=== PATIENT | female | born 1995 | race Caucasian/White ===

== ENCOUNTER 2019-06-14 17:06 | Emergency (ER) | payer BC, MEDICAID ==
[2019-06-14] MEDS ORDERED: Sodium Chloride 0.9% 10 ML Syringe FLUSH PRN (17:49)
[2019-06-14] MEDS ORDERED: Ketorolac 30 MG/ML SDV IVPUSH ONE (17:50)
--- NOTE | 2019-06-14 17:57 | EDM.PDOC ---
ED HPI GENERAL MEDICAL PROBLEM - General Chief Complaint: REPRODUCTIVE HEALTHCARE ASSISTANT Problem Stated Complaint: poss misscarriage Time Seen by Provider: 06/14/19 17:35 Source of Information: Reports: Patient History Limitations: Reports: No Limitations - History of Present Illness INITIAL COMMENTS - FREE TEXT/NARRATIVE: Patient is a 23-year-old female with a history of preeclampsia presents to the ED with concerns of miscarrying. Patient states her last menstrual cycle was the first part of April of this year. She estimates she is approximately 11 weeks and this was confirmed by 3 home test. She is scheduled to see her REPRODUCTIVE HEALTHCARE ASSISTANT specialist in one week for ultrasound. States has some mild spotting yesterday that was of no concern. Today while at work she noted heavier bleeding and has since passed clots and questionable tissue. She has generalized abdominal discomfort with cramping present. She saturated 3 pads over the last hour and a half. She denies any dizziness, shortness of breath, chest pain, fever, dysuria, or any additional complaints. She believes her blood type is O+. She has a prego history of 4, para 2, miscarriage 1. - Related Data Allergies Allergy/AdvReac Type Severity Reaction Status Date / Time oxycodone [From Percocet] AdvReac Nausea and Verified 11/27/16 15:24 Vomiting Home Meds: Home Meds Acetaminophen/HYDROcodone [[place] 325-5 MG] 1 tab PO Q6H PRN #8 tablet 06/14/19 [ Rx] Ondansetron [Zofran ODT] 4 mg PO Q6H PRN #8 tab.dis 06/14/19 [Rx] Past Medical History Gastrointestinal History: Reports: Other (See Below) REPRODUCTIVE HEALTHCARE ASSISTANT History: Reports: , Spontaneous - Past Surgical History HEENT Surgical History: Reports: Other (See Below) Social & Family History - Tobacco Use Smoking Status *Q: Never Smoker ED ROS GENERAL - Review of Systems Review Of Systems: ROS reveals no pertinent complaints other than HPI. ED EXAM - Physical Exam Exam: See Below Exam Limited By: No Limitations General Appearance: Alert, WD/WN, No Apparent Distress Eye Exam: Bilateral Eye: Normal Inspection, PERRL Ears: Hearing Grossly Normal Nose: Normal Inspection Throat/Mouth: Normal Voice, No Airway Compromise Head: Atraumatic, Normocephalic Neck: Normal Inspection, Supple, Non-Tender, Full Range of Motion Respiratory/Chest: No Respiratory Distress, Lungs Clear, Normal Breath Sounds, No Accessory Muscle Use Cardiovascular: Normal Peripheral Pulses, Regular Rate, Rhythm, No Murmur GI/Abdominal Exam: Normal Bowel Sounds, Soft, No Organomegaly, No Distention, Tender (Generalized abdominal discomfort with palpation.) Back Exam: Normal Inspection, Full Range of Motion Extremities: Normal Inspection, No Pedal Edema Neurological: Alert, Oriented, CN II-XII Intact, Normal Cognition, No Motor/ Sensory Deficits Psychiatric: Normal Affect, Normal Mood Skin Exam: Warm, Dry, Intact, Normal Color Course - Vital Signs Last Recorded V/S: Last Vital Signs Temp 98.5 F 06/14/19 17:17 Pulse 73 06/14/19 17:17 Resp 18 06/14/19 17:17 BP 138/83 06/14/19 17:17 Pulse Ox 100 06/14/19 17:17 - Orders/Labs/Meds Orders: Active Orders 24 hr Category Date Time Status Peripheral IV Care [RC] . DIRECTED Care 06/14/19 17:50 Active PATIENT RETYPE [BBK] Routine Lab 06/14/19 19:59 Ordered Peripheral IV Insertion Adult [OM.PC] Routine Oth 06/14/19 17:49 Ordered Labs: Laboratory Tests 06/14/19 06/14/19 06/14/19 Range/Units 18:02 18:03 18:05 WBC 8.82 (3.98-10.04) K/mm3 RBC 4.49 (3.98-5.22) M/mm3 Hgb 13.6 D (11.2-15.7) gm/dl Hct 40.4 (34.1-44.9) % MCV 90.0 (79.4-94.8) fl MCH 30.3 (25.6-32.2) pg MCHC 33.7 (32.2-35.5) g/dl RDW Std Deviation 38.8 (36.4-46.3) fL Plt Count 313 (182-369) K/mm3 MPV 9.1 L (9.4-12.3) fl Neutrophils % (Manual) 55 (40-60) % Band Neutrophils % 1 (0-10) % Lymphocytes % (Manual) 33 (20-40) % Atypical Lymphs % 0 % Monocytes % (Manual) 8 (2-10) % Eosinophils % (Manual) 3 (0.7-5.8) % Basophils % (Manual) 0 L (0.1-1.2) Platelet Estimate Adequate RBC Morph Comment Normal PT (9.7-12.0) SECONDS INR APTT (22-31) SECONDS Sodium (136-145) mEq/L Potassium (3.5-5.1) mEq/L Chloride (98-107) mEq/L Carbon Dioxide (21-32) mEq/L Anion Gap (5-15) BUN (7-18) mg/dL Creatinine (0.55-1.02) mg/dL Est Cr Clr Drug Dosing Estimated GFR (MDRD) (>60) mL/min BUN/Creatinine Ratio (14-18) Glucose (74-106) mg/dL Calcium (8.5-10.1) mg/dL Total Bilirubin (0.2-1.0) mg/dL AST (15-37) U/L ALT (14-59) U/L Alkaline Phosphatase (46-116) U/L C-Reactive Protein (<1.0) mg/dL Total Protein (6.4-8.2) g/dl Albumin (3.4-5.0) g/dl Globulin gm/dL Albumin/Globulin Ratio (1-2) HCG, Quant mIU/mL Urine Color Red H (Yellow) Urine Appearance Turbid H (Clear) Urine pH 5.5 (5.0-8.0) Ur Specific [place] 1.020 (1.005-1.030) Urine Protein 2+ H (Negative) Urine Glucose (UA) Negative (Negative) Urine Ketones Negative (Negative) Urine Occult Blood 3+ H (Negative) Urine Nitrite Negative (Negative) Urine Bilirubin Negative (Negative) Urine Urobilinogen 0.2 (0.2-1.0) Ur Leukocyte Esterase Negative (Negative) Urine RBC Too numerous to cnt H (0-5) /hpf Urine WBC 0-5 (0-5) /hpf Ur Squamous Epith Cells 0-5 (0-5) /hpf Urine Bacteria Few (FEW) /hpf Urine Mucus Not seen (FEW) /hpf Urine HCG, Qual Positive (NEGATIVE) Blood Type 06/14/19 06/14/19 06/14/19 Range/Units 18:05 18:05 18:05 WBC (3.98-10.04) K/mm3 RBC (3.98-5.22) M/mm3 Hgb (11.2-15.7) gm/dl Hct (34.1-44.9) % MCV (79.4-94.8) fl MCH (25.6-32.2) pg MCHC (32.2-35.5) g/dl RDW Std Deviation (36.4-46.3) fL Plt Count (182-369) K/mm3 MPV (9.4-12.3) fl Neutrophils % (Manual) (40-60) % Band Neutrophils % (0-10) % Lymphocytes % (Manual) (20-40) % Atypical Lymphs % % Monocytes % (Manual) (2-10) % Eosinophils % (Manual) (0.7-5.8) % Basophils % (Manual) (0.1-1.2) Platelet Estimate RBC Morph Comment PT 9.8 (9.7-12.0) SECONDS INR < 0.93 APTT 28 (22-31) SECONDS Sodium 140 (136-145) mEq/L Potassium 3.7 (3.5-5.1) mEq/L Chloride 104 (98-107) mEq/L Carbon Dioxide 27 (21-32) mEq/L Anion Gap 12.7 (5-15) BUN 9 (7-18) mg/dL Creatinine 0.7 (0.55-1.02) mg/dL Est Cr Clr Drug Dosing TNP Estimated GFR (MDRD) > 60 (>60) mL/min BUN/Creatinine Ratio 12.9 L (14-18) Glucose 102 (74-106) mg/dL Calcium 9.4 (8.5-10.1) mg/dL Total Bilirubin 0.2 (0.2-1.0) mg/dL AST 23 (15-37) U/L ALT 48 (14-59) U/L Alkaline Phosphatase 88 (46-116) U/L C-Reactive Protein 1.0 (<1.0) mg/dL Total Protein 7.9 (6.4-8.2) g/dl Albumin 4.2 (3.4-5.0) g/dl Globulin 3.7 gm/dL Albumin/Globulin Ratio 1.1 (1-2) HCG, Quant mIU/mL Urine Color (Yellow) Urine Appearance (Clear) Urine pH (5.0-8.0) Ur Specific [place] (1.005-1.030) Urine Protein (Negative) Urine Glucose (UA) (Negative) Urine Ketones (Negative) Urine Occult Blood (Negative) Urine Nitrite (Negative) Urine Bilirubin (Negative) Urine Urobilinogen (0.2-1.0) Ur Leukocyte Esterase (Negative) Urine RBC (0-5) /hpf Urine WBC (0-5) /hpf Ur Squamous Epith Cells (0-5) /hpf Urine Bacteria (FEW) /hpf Urine Mucus (FEW) /hpf Urine HCG, Qual (NEGATIVE) Blood Type O POSITIVE 06/14/19 Range/Units 19:35 WBC (3.98-10.04) K/mm3 RBC (3.98-5.22) M/mm3 Hgb (11.2-15.7) gm/dl Hct (34.1-44.9) % MCV (79.4-94.8) fl MCH (25.6-32.2) pg MCHC (32.2-35.5) g/dl RDW Std Deviation (36.4-46.3) fL Plt Count (182-369) K/mm3 MPV (9.4-12.3) fl Neutrophils % (Manual) (40-60) % Band Neutrophils % (0-10) % Lymphocytes % (Manual) (20-40) % Atypical Lymphs % % Monocytes % (Manual) (2-10) % Eosinophils % (Manual) (0.7-5.8) % Basophils % (Manual) (0.1-1.2) Platelet Estimate RBC Morph Comment PT (9.7-12.0) SECONDS INR APTT (22-31) SECONDS Sodium (136-145) mEq/L Potassium (3.5-5.1) mEq/L Chloride (98-107) mEq/L Carbon Dioxide (21-32) mEq/L Anion Gap (5-15) BUN (7-18) mg/dL Creatinine (0.55-1.02) mg/dL Est Cr Clr Drug Dosing Estimated GFR (MDRD) (>60) mL/min BUN/Creatinine Ratio (14-18) Glucose (74-106) mg/dL Calcium (8.5-10.1) mg/dL Total Bilirubin (0.2-1.0) mg/dL AST (15-37) U/L ALT (14-59) U/L Alkaline Phosphatase (46-116) U/L C-Reactive Protein (<1.0) mg/dL Total Protein (6.4-8.2) g/dl Albumin (3.4-5.0) g/dl Globulin gm/dL Albumin/Globulin Ratio (1-2) HCG, Quant 93334.0 mIU/mL Urine Color (Yellow) Urine Appearance (Clear) Urine pH (5.0-8.0) Ur Specific [place] (1.005-1.030) Urine Protein (Negative) Urine Glucose (UA) (Negative) Urine Ketones (Negative) Urine Occult Blood (Negative) Urine Nitrite (Negative) Urine Bilirubin (Negative) Urine Urobilinogen (0.2-1.0) Ur Leukocyte Esterase (Negative) Urine RBC (0-5) /hpf Urine WBC (0-5) /hpf Ur Squamous Epith Cells (0-5) /hpf Urine Bacteria (FEW) /hpf Urine Mucus (FEW) /hpf Urine HCG, Qual (NEGATIVE) Blood Type Meds: Medications Discontinued Medications Generic Name Dose Route Start Last Admin Trade Name Freq PRN Reason Stop Dose Admin Hydrocodone Bitart/Acetaminophen 1 tab 06/14/19 20:34 06/14/19 20:50 [place] 325-5 Mg PO 06/14/19 20:35 1 tab ONETIME ONE Administration Hydromorphone HCl 0.5 mg 06/14/19 18:58 06/14/19 19:08 Dilaudid IVPUSH 06/14/19 18:59 0.5 mg ONETIME ONE Administration Hydromorphone HCl 0.5 mg 06/14/19 20:23 06/14/19 20:33 Dilaudid IVPUSH 06/14/19 20:24 Not Given ONETIME ONE Sodium Chloride 1,000 mls @ 150 mls/hr 06/14/19 18:00 06/14/19 18:07 Normal Saline IV 150 mls/hr ASDIRECTED KENDELL Administration Ketorolac Tromethamine 30 mg 06/14/19 17:50 06/14/19 18:07 Toradol IVPUSH 06/14/19 17:51 30 mg ONETIME ONE Administration Sodium Chloride 10 ml 06/14/19 17:49 06/14/19 18:07 Saline Flush FLUSH 10 ml ASDIRECTED PRN Administration Keep Vein Open - Re-Assessments/Exams Free Text/Narrative Re-Assessment/Exam: On exam patient has generalized abdominal discomfort with crampiness and has saturated approximately 3 pads over the last hour and a half. She's passed some clots and tissue per patient. She denies any lightheadedness, nausea vomiting, dysuria, fever, or any additional complaints. She has a history of preeclampsia and notes a slight headache as of recent. She denies any edema to her lower extremities. There is no vision changes. She is approximately 11 weeks . This was confirmed by home test 3. She is scheduled to have a ultrasound by REPRODUCTIVE HEALTHCARE ASSISTANT in the next week. She does have a history of miscarriage in the past. IV established with normal saline. Ordered Toradol 30 mg IVP. Initial labs and studies include: CBC, chem 14, CRP, coag studies, ABO/Rh type, UA, hCG quantitative, and OB transvaginal. Transvaginal ultrasound impression: Distended endometrial cavity as described above. Molar is a strong possibility. Dominant follicle versus corpus luteum cyst as an incidental note within the right ovary. No additional abnormalities seen. Labs reviewed: CBC was essentially normal. Sodium, potassium, CO2, AG, and creatinine normal. CRP normal. HCG quantitative 13,258. UA positive for blood. 2004 Discussed the patient with Dr. Montoya [employer] manager RE[employer]IVE HEALTHCARE ASSISTANT. Suggested speaking with patients REPR[employer]IVE HEALTHCARE ASSISTANT specialists Dr. Thurston. [address] Thurston. She will see patient in the clinic tomorrow as scheduled at 945. Nothing needs to take place this morning as long as patient is stable and not bleeding excessively. Suspects findings on ultrasound maybe fluid/blood with debris due to miscarriage taking place since HCG quantitative is not that high. 2014 BP 120/73, HR 59. Patients bleeding has stopped. Still having some mild abdominal pain. Ordered dilaudid 0.5mg IVP. 2021 Nursing staff has pulled the IV. Ordered norco 5-325mg PO x 1 per patients requests. Return precautions were discussed with the patient. She had no further questions or concerns. Discharge instructions as documented. Departure - Departure Time of Disposition: 20:34 Disposition: Home, Self-Care 01 Condition: Good Clinical Impression: Incomplete - Discharge Information Prescriptions: Acetaminophen/HYDROcodone [[place] 325-5 MG] 1 tab PO Q6H PRN #8 tablet PRN Reason: Abdominal Pain Ondansetron [Zofran ODT] 4 mg PO Q6H PRN #8 tab.dis PRN Reason: Nausea/Vomiting Instructions: Incomplete Miscarriage, Pain Medicine Instructions, [id number] Referrals: Dominique Thurston MD [Primary Care Provider] - Forms: ED Department Discharge Additional Instructions: Keep appointment with Dr. Thurston has scheduled for tomorrow morning. Monitor for worsening bleeding or pain is so please return back to ED as instructed for further evaluation and treatment. For pain take ibuprofen 600 mg every 6 hours. For severe pain take [place] one tab every [address] not drive this evening nor while taking the [place]. May take Zofran 4 mg every 6 hours as needed for nausea vomiting as well. - My Orders Last 24 Hours: My Active Orders 06/14/19 17:49 Peripheral IV Insertion Adult [OM.PC] Routine 06/14/19 17:50 Peripheral IV Care [RC] . DIRECTED 06/14/19 19:59 PATIENT RETYPE [BBK] Routine - Assessment/Plan Last 24 Hours: My Active Orders 06/14/19 17:49 Peripheral IV Insertion Adult [OM.PC] Routine 06/14/19 17:50 Peripheral IV Care [RC] . DIRECTED 06/14/19 19:59 PATIENT RETYPE [BBK] Routine
[2019-06-14] MEDS ORDERED: Sodium Chloride 0.9% 1,000 ML IV SCH (18:00)
[2019-06-14] MEDS ORDERED: HYDROmorphone 0.5 MG/0.5 ML Syringe IVPUSH ONE ×2 (18:58→20:23)
--- NOTE | 2019-06-14 19:10 | US ---
First trimester obstetrical ultrasound: Multiple real-time images were obtained transvaginally. Findings: Endometrial cavity shows evidence of distention with heterogeneous material containing small cystic areas. At this point cannot exclude a molar . Endometrial cavity is distended by 1.8 cm. No myometrial abnormality is seen at this time. Dominant follicle versus corpus luteum cyst within the right ovary. Ovaries are otherwise unremarkable. No free fluid is seen. Impression: 1. Distended endometrial cavity as described above. Molar is a strong possibility. 2. Dominant follicle versus corpus luteum cyst as an incidental note within the right ovary. 3. No additional abnormality is seen. Diagnostic code #3
[2019-06-14] MEDS ORDERED: Acetaminophen/HYDROcodone 325-5 MG Tab PO ONE (20:34)
== END 2019-06-14 20:52 | disposition home or self-care (01) ==
LOC: JD.ED 17:06
DX: O03.4 Incomplete spontaneous abortion without complication (principal); Z88.5 Allergy status to narcotic agent
CPT/HCPCS: 36415; 76817; 80053; 81001; 81025; 84702; 85007; 85027; 85610; 85730; 86140; 86900; 86901; 96361; 96374; 96375; 99284; A9270; J1170; J1885; J7040; 99283

== ENCOUNTER 2021-03-25 11:24 | Emergency (ER) | payer OTHER ==
[2021-03-25] MEDS ORDERED: Sodium Chloride 0.9% 10 ML Syringe FLUSH PRN (11:58)
[2021-03-25] MEDS ORDERED: Hyoscyamine 0.125 MG Tab.SL SL ONE (11:58)
[2021-03-25] MEDS ORDERED: Ondansetron 4 MG/2 ML SDV IVPUSH ONE (11:58)
[2021-03-25] MEDS ORDERED: Sodium Chloride 0.9% 1,000 ML IV ONE (11:58)
--- NOTE | 2021-03-25 11:59 | EDM.PDOC ---
ED HPI GENERAL MEDICAL PROBLEM - General Chief Complaint: Gastrointestinal Problem Stated Complaint: VOMITING/DIARRHEA/CHILLS Time Seen by Provider: 03/25/21 11:37 Source of Information: Reports: Patient History Limitations: Reports: No Limitations - History of Present Illness INITIAL COMMENTS - FREE TEXT/NARRATIVE: 25-year-old female presents to the emergency department with complaints of nausea, vomiting, diarrhea and abdominal cramping. Patient states she is otherwise healthy and does not have any past medical history. She states that she was out in the heat all day yesterday. It was 100 degrees outside. She feels like she drink enough water throughout the day. 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 She states that later that afternoon she did eat some brisket and potato salad and felt fine when she went to bed last evening. She states she slept fine throughout the night. States she woke up this morning and had abdominal cramping and diarrhea. She states she has been on the toilet all morning with watery diarrhea. She states she has vomited 4 times. She has not been able to keep any food or fluids down. States she has had a headache. She denies any fever however she has had intermittent chills. She also states she has had a headache. Patient denies any urinary symptoms. abdomen Pain Score (Numeric/FACES): 4 - Related Data Allergies Allergy/AdvReac Type Severity Reaction Status Date / Time oxycodone [From Percocet] AdvReac Nausea and Verified 11/27/16 15:24 Vomiting Home Meds: Home Meds . [No Known Home Meds] 03/25/21 [History] Past Medical History Gastrointestinal History: Reports: Other (See Below) DIRECTOR OF PATIENT CARE History: Reports: , Spontaneous - Infectious Disease History Infectious Disease History: Reports: Novel Coronavirus Other Infectious Disease History: may 2020 - Past Surgical History HEENT Surgical History: Reports: Other (See Below) Social & Family History - Tobacco Use Tobacco Use Status *Q: Never Tobacco User - Recreational Drug Use Recreational Drug Use: No ED ROS GENERAL - Review of Systems Review Of Systems: Comprehensive ROS is negative, except as noted in HPI. ED EXAM, GI/ABD - Physical Exam Exam: See Below Exam Limited By: No Limitations General Appearance: Alert, WD/WN, Mild Distress Ears: Normal External Exam, Hearing Grossly Normal Nose: Normal Inspection Throat/Mouth: Normal Inspection, Normal Lips, Normal Voice, No Airway Compromise Head: Atraumatic Neck: Normal Inspection, Supple Respiratory/Chest: No Respiratory Distress, Lungs Clear, Normal Breath Sounds, No Accessory Muscle Use, Chest Non-Tender Cardiovascular: Normal Peripheral Pulses, Regular Rate, Rhythm, No Edema, No Murmur GI/Abdominal Exam: Normal Bowel Sounds, Soft, No Distention, Tender (In all 4 quadrants with palpation) (Female) Exam: Deferred Rectal (Female) Exam: Deferred Back Exam: Normal Inspection Extremities: Normal Inspection, Normal Range of Motion Neurological: Alert, Oriented, Normal Cognition Psychiatric: Normal Affect, Normal Mood Skin Exam: Warm, Dry, Intact, Normal Color, No Rash Lymphatic: No Adenopathy Course - Vital Signs Text/Narrative:: Patient presents with nausea, vomiting, watery diarrhea, generalized abdominal cramping and a headache. States this started first thing when she woke up this morning. She states she has been on the toilet most of the morning with watery diarrhea. She has vomited approximately 4 times. States that she has had intermittent generalized abdominal cramping that is quite severe. States she felt fine yesterday had before she went to bed. She did eat outside yesterday and had some brisket and potato salad. At the time of my assessment the patient is not actively vomiting. Exam is essentially unremarkable however she does have tenderness in the abdomen in all 4 quadrants with palpation. Bowel sounds are positive in all 4 quadrants. I have ordered a CBC, CMP, C-reactive protein, magnesium, lipase and a urinalysis with micro and culture if indicated. She will also receive 1 L of normal saline bolus as she is likely dehydrated, Zofran 4 mg IV for the nausea, and Levsin for the abdominal cramping. Last Recorded V/S: Last Vital Signs Temp 97.1 F 03/25/21 11:37 Pulse 88 03/25/21 11:37 Resp 18 03/25/21 11:37 BP 123/64 03/25/21 11:37 Pulse Ox 100 03/25/21 11:37 - Orders/Labs/Meds Orders: Active Orders 24 hr Category Date Time Status CULTURE URINE [MREF] Stat Lab 03/25/21 13:45 Received Sodium Chloride 0.9% [Saline Flush] Med 03/25/21 11:58 Active 10 ml FLUSH ASDIRECTED PRN Saline Lock Insert [OM.PC] Stat Oth 03/25/21 11:58 Ordered Medication Orders Sodium Chloride (Sodium Chloride 0.9% 10 Ml Syringe) 10 ml FLUSH ASDIRECTED PRN PRN Reason: Keep Vein Open Last Admin: 03/25/21 12:16 Dose: 10 ml Documented by: VIVIAN Labs: Laboratory Tests 03/25/21 03/25/21 03/25/21 Range/Units 11:40 11:40 11:40 WBC 14.16 H (3.98-10.04) K/mm3 RBC 4.44 (3.98-5.22) M/mm3 Hgb 13.8 (11.2-15.7) gm/dl Hct 41.8 (34.1-44.9) % MCV 94.1 D (79.4-94.8) fl MCH 31.1 (25.6-32.2) pg MCHC 33.0 (32.2-35.5) g/dl RDW Std Deviation 42.9 (36.4-46.3) fL Plt Count 361 (182-369) K/mm3 MPV 8.8 L (9.4-12.3) fl Neut % (Auto) 81.7 H (34.0-71.1) % Lymph % (Auto) 13.1 L (19.3-51.7) % [place] % (Auto) 4.0 L (4.7-12.5) % Eos % (Auto) 0.6 L (0.7-5.8) Baso % (Auto) 0.2 (0.1-1.2) % Neut # (Auto) 11.56 H (1.56-6.13) K/mm3 Lymph # (Auto) 1.86 (1.18-3.74) K/mm3 [place] # (Auto) 0.56 H (0.24-0.36) K/mm3 Eos # (Auto) 0.09 (0.04-0.36) K/mm3 Baso # (Auto) 0.03 (0.01-0.08) K/mm3 Manual Slide Review Not Reportable Sodium 142 (136-145) mEq/L Potassium 4.4 (3.5-5.1) mEq/L Chloride 104 (98-107) mEq/L Carbon Dioxide 25 (21-32) mEq/L Anion Gap 17.4 H (5-15) BUN 15 (7-18) mg/dL Creatinine 1.0 (0.55-1.02) mg/dL Est Cr Clr Drug Dosing 73.62 mL/min Estimated GFR (MDRD) > 60 (>60) mL/min BUN/Creatinine Ratio 15.0 (14-18) Glucose 160 H (70-99) mg/dL Calcium 9.0 (8.5-10.1) mg/dL Magnesium 1.6 L (1.8-2.4) mg/dL Total Bilirubin 0.4 (0.2-1.0) mg/dL AST 15 (15-37) U/L ALT 30 (14-59) U/L Alkaline Phosphatase 64 (46-116) U/L C-Reactive Protein 0.5 (<1.0) mg/dL Total Protein 8.2 (6.4-8.2) g/dl Albumin 4.5 (3.4-5.0) g/dl Globulin 3.7 gm/dL Albumin/Globulin Ratio 1.2 (1-2) Lipase 116 (73-393) U/L Urine Color (Yellow) Urine Appearance (Clear) Urine pH (5.0-8.0) Ur Specific [place] (1.005-1.030) Urine Protein (Negative) Urine Glucose (UA) (Negative) Urine Ketones (Negative) Urine Occult Blood (Negative) Urine Nitrite (Negative) Urine Bilirubin (Negative) Urine Urobilinogen (0.2-1.0) Ur Leukocyte Esterase (Negative) U Hyaline Cast (Auto) (0-5) /lpf Urine RBC (0-5) /hpf Urine WBC (0-5) /hpf Ur Squamous Epith Cells (0-5) /hpf Urine Bacteria (FEW) /hpf Urine Mucus (FEW) /hpf 03/25/21 Range/Units 13:45 WBC (3.98-10.04) K/mm3 RBC (3.98-5.22) M/mm3 Hgb (11.2-15.7) gm/dl Hct (34.1-44.9) % MCV (79.4-94.8) fl MCH (25.6-32.2) pg MCHC (32.2-35.5) g/dl RDW Std Deviation (36.4-46.3) fL Plt Count (182-369) K/mm3 MPV (9.4-12.3) fl Neut % (Auto) (34.0-71.1) % Lymph % (Auto) (19.3-51.7) % [place] % (Auto) (4.7-12.5) % Eos % (Auto) (0.7-5.8) Baso % (Auto) (0.1-1.2) % Neut # (Auto) (1.56-6.13) K/mm3 Lymph # (Auto) (1.18-3.74) K/mm3 [place] # (Auto) (0.24-0.36) K/mm3 Eos # (Auto) (0.04-0.36) K/mm3 Baso # (Auto) (0.01-0.08) K/mm3 Manual Slide Review Sodium (136-145) mEq/L Potassium (3.5-5.1) mEq/L Chloride (98-107) mEq/L Carbon Dioxide (21-32) mEq/L Anion Gap (5-15) BUN (7-18) mg/dL Creatinine (0.55-1.02) mg/dL Est Cr Clr Drug Dosing mL/min Estimated GFR (MDRD) (>60) mL/min BUN/Creatinine Ratio (14-18) Glucose (70-99) mg/dL Calcium (8.5-10.1) mg/dL Magnesium (1.8-2.4) mg/dL Total Bilirubin (0.2-1.0) mg/dL AST (15-37) U/L ALT (14-59) U/L Alkaline Phosphatase (46-116) U/L C-Reactive Protein (<1.0) mg/dL Total Protein (6.4-8.2) g/dl Albumin (3.4-5.0) g/dl Globulin gm/dL Albumin/Globulin Ratio (1-2) Lipase (73-393) U/L Urine Color Yellow (Yellow) Urine Appearance Slt cloudy H (Clear) Urine pH 7.0 (5.0-8.0) Ur Specific [place] 1.025 (1.005-1.030) Urine Protein 2+ H (Negative) Urine Glucose (UA) Negative (Negative) Urine Ketones Negative (Negative) Urine Occult Blood Negative (Negative) Urine Nitrite Negative (Negative) Urine Bilirubin Negative (Negative) Urine Urobilinogen 0.2 (0.2-1.0) Ur Leukocyte Esterase Trace H (Negative) U Hyaline Cast (Auto) 5-10 H (0-5) /lpf Urine RBC Not seen (0-5) /hpf Urine WBC 5-10 H (0-5) /hpf Ur Squamous Epith Cells 0-5 (0-5) /hpf Urine Bacteria Moderate H (FEW) /hpf Urine Mucus Many H (FEW) /hpf Meds: Medications Generic Name Dose Route Start Last Admin Trade Name Freq PRN Reason Stop Dose Admin Sodium Chloride 10 ml 03/25/21 11:58 03/25/21 12:16 Sodium Chloride 0.9% 10 Ml Syringe FLUSH 10 ml ASDIRECTED PRN Administration Keep Vein Open Discontinued Medications Generic Name Dose Route Start Last Admin Trade Name Freq PRN Reason Stop Dose Admin Hyoscyamine 0.125 mg 03/25/21 11:58 03/25/21 12:16 Hyoscyamine 0.125 Mg Tab.Sl SL 03/25/21 11:59 0.125 mg ONETIME ONE Administration Sodium Chloride 1,000 mls @ 999 mls/hr 03/25/21 11:58 03/25/21 12:15 Normal Saline IV 03/25/21 12:58 999 mls/hr ONETIME ONE Administration Ketorolac Tromethamine 30 mg 03/25/21 13:48 03/25/21 13:58 Ketorolac 30 Mg/Ml Sdv IVPUSH 03/25/21 13:49 30 mg ONETIME ONE Administration Ondansetron HCl 4 mg 03/25/21 11:58 03/25/21 12:15 Ondansetron 4 Mg/2 Ml Sdv IVPUSH 03/25/21 11:59 4 mg ONETIME ONE Administration - Re-Assessments/Exams Free Text/Narrative Re-Assessment/Exam: 03/25/21 14:15 Hematology reveals a WBC of 14.6, hemoglobin 13.8, hematocrit 41.8, neutrophil percentage 81.7 Chemistry reveals a sodium of 142, potassium 4.4, anion gap 17.4, BUN 15, creatinine 1.0 glucose 160, magnesium 1.6, total bilirubin 0.4, AST 15, ALT 30, alk phos 64, C-reactive protein 0.5 White count is elevated however the patient is slightly dehydrated and her C- reactive protein is normal. I suspect patient has viral gastroenteritis. Patient states she is feeling better. Her nausea has resolved however she still does have some abdominal cramping but significantly less severe. She has not had any diarrhea stools since being in the emergency department. She does complain of a headache. I have ordered for her to receive 30 mg of Toradol IV. Nursing staff has just collected her urine so we will likely discharge her to home once I have those results. 03/25/21 15:01 Urinalysis reveals 2+ protein, trace leukocyte esterase, hyaline casts, 5-10 WBC, moderate bacteria, urine mucus many. I discussed these results with the patient and she states she is completely asymptomatic so I will hold off on starting her on antibiotic at this time urine culture is pending. Once we receive this report we will decide whether or not to start her on an antibiotic. I have educated her however that should she develop urinary type of symptoms that she should follow-up with her primary care provider or she can return to the emergency department. I have also discussed that I will give her prescription for Zofran 4 mg ODT. She can take 1 tab every 6 hours for nausea or vomiting. Departure - Departure Time of Disposition: 15:02 Disposition: Home, Self-Care 01 Condition: Good Clinical Impression: Gastroenteritis - Discharge Information Instructions: Viral Gastroenteritis, Adult, [id number], Nausea and Vomiting, Adult, [id number] Referrals: PCP,None [Primary Care Provider] - Forms: ED Department Discharge Additional Instructions: You were seen in the emergency department today with complaints of headache, nausea, vomiting, diarrhea and abdominal cramping. Labs and urinalysis were completed. Your magnesium level was slightly low however blood work was essentially otherwise unremarkable. You likely have viral gastroenteritis otherwise known as a stomach flu. This likely will resolve in the next 24 to 48 hours. Recommend that you go home and rest. Stay out of the heat. Drink plenty of fluids. Recommend that you drink Gatorade to replenish your electrolytes as I stated your magnesium level was slightly on the low side. Your urine test does appear that you may have a slight urinary tract infection however as I discussed if you are not symptomatic I do not want to start you on antibiotics. I will wait for the culture results to return and decide from there whether or not you do need to be started on antibiotic. We will call you if you do otherwise if you do not hear from us you do not need to worry. I have given you a prescription for a nausea medication called Carlotta. You can take this medication place it under your tongue and allow it to dissolve. Please allow 30 to 45 minutes for it to fully take effect prior to eating or drinking. You can take this medication every 6 hours as needed for nausea and vomiting. Should your condition worsen or change, do not hesitate returning to the emergency department. Sepsis Event Note (ED) - Evaluation Sepsis Screening Result: No Definite Risk - Focused Exam Vital Signs: Vital Signs Temp Pulse Resp BP Pulse Ox 03/25/21 11:37 97.1 F 88 18 123/64 100 - My Orders Last 24 Hours: My Active Orders 03/25/21 11:58 Sodium Chloride 0.9% [Saline Flush] 10 ml FLUSH ASDIRECTED PRN Saline Lock Insert [OM.PC] Stat 03/25/21 13:45 CULTURE URINE [MREF] Stat - Assessment/Plan Last 24 Hours: My Active Orders 03/25/21 11:58 Sodium Chloride 0.9% [Saline Flush] 10 ml FLUSH ASDIRECTED PRN Saline Lock Insert [OM.PC] Stat 03/25/21 13:45 CULTURE URINE [MREF] Stat
[2021-03-25] MEDS ORDERED: Ketorolac 30 MG/ML SDV IVPUSH ONE (13:48)
== END 2021-03-25 15:13 | disposition home or self-care (01) ==
LOC: JD.ED 11:24
DX: K52.9 Noninfective gastroenteritis and colitis, unspecified (principal); E86.0 Dehydration; Z88.5 Allergy status to narcotic agent; Z86.16 Personal history of COVID-19
CPT/HCPCS: 36415; 80053; 81001; 83690; 83735; 85025; 86140; 87086; 96374; 96375; 99284; A9270; J1885; J2405; J7030; 99283

== ENCOUNTER 2021-04-15 11:29 | Emergency (ER) | payer OTHER ==
[2021-04-15] MEDS ORDERED: methylPREDNISolone Sodium Succinate 125 MG/2 ML SDV IM ONE (12:16)
--- NOTE | 2021-04-15 12:39 | EDM.PDOC ---
ED HPI GENERAL MEDICAL PROBLEM - General Chief Complaint: Bite:Animal, Insect Stated Complaint: ALLERGIC RX TO BEE STING Time Seen by Provider: 04/15/21 12:15 Source of Information: Reports: Patient, RN Notes Reviewed History Limitations: Reports: No Limitations - History of Present Illness INITIAL COMMENTS - FREE TEXT/NARRATIVE: Patient is a 25-year-old female presents to the ER for 2 different bee stings. States she was stung on her right hand, on the posterior aspect, and again on the right calf. She does have some erythema and localized swelling to the areas, states she has been taking children's Benadryl every 4 hours and this does not seem to be helping, she is complaining of the areas being itchy, and increased swelling. She has some slight pain when she flexes her leg, or when she walks otherwise she is able to move her leg in all range of motion without difficulty. Patient denies any other sick-like symptoms, fever/chills, cough/shortness of breath, nausea/vomiting/diarrhea. Right Hand Pain Score (Numeric/FACES): 3 - Related Data Allergies Allergy/AdvReac Type Severity Reaction Status Date / Time bee venom protein (honey bee) Allergy Severe Swelling Verified 04/15/21 11:39 oxycodone [From Percocet] Allergy Severe Rash Verified 04/15/21 11:39 Home Meds: Home Meds . [No Known Home Meds] 03/25/21 [History] Past Medical History Gastrointestinal History: Reports: Other (See Below) [employer] History: Reports: , Spontaneous - Infectious Disease History Infectious Disease History: Reports: Novel Coronavirus Other Infectious Disease History: may 2020 - Past Surgical History HEENT Surgical History: Reports: Oral Surgery Social & Family History - Tobacco Use Tobacco Use Status *Q: Never Tobacco User - Caffeine Use Caffeine Use: Reports: None - Recreational Drug Use Recreational Drug Use: No ED ROS GENERAL - Review of Systems Review Of Systems: Comprehensive ROS is negative, except as noted in HPI. ED EXAM, ANIMAL BITE - Physical Exam Exam: See Below Exam Limited By: No Limitations General Appearance: Alert, WD/WN, No Apparent Distress Respiratory/Chest: No Respiratory Distress, Lungs Clear, Normal Breath Sounds, No Accessory Muscle Use, Chest Non-Tender Cardiovascular: Normal Peripheral Pulses, Regular Rate, Rhythm, No Edema Peripheral Pulses: 2+: Radial (L), Radial (R), Dorsalis Pedis (L), Dorsalis Pedis (R) Extremities: Normal Range of Motion, Normal Capillary Refill, Other (Swelling to posterior right hand with slight erythema, Erythema to R lateral posterior calf that is roughly 5cm in diameter) Neurological: Alert, Oriented, Normal Cognition, No Motor/Sensory Deficits Psychiatric: Normal Affect, Normal Mood Skin Exam: Warm/Dry Course - Vital Signs Last Recorded V/S: Last Vital Signs Temp 96.7 F L 04/15/21 11:36 Pulse 81 04/15/21 11:36 Resp 16 04/15/21 11:36 BP 127/67 04/15/21 11:36 Pulse Ox 98 04/15/21 11:36 - Orders/Labs/Meds Meds: Medications Discontinued Medications Generic Name Dose Route Start Last Admin Trade Name Freamelie PRN Reason Stop Dose Admin Methylprednisolone Sodium Succinate 125 mg 04/15/21 12:16 Methylprednisolone Sodium Succinate 125 Mg/2 Ml Sdv IM 04/15/21 12:17 ONETIME ONE - Re-Assessments/Exams Free Text/Narrative Re-Assessment/Exam: 04/15/21 12:35 Patient has 2 different bug bites, one on her right posterior hand, and right posterior lateral calf, we will give her a one-time injection of IM Solu-Medrol for management, and we will give her some general instructions for home and have her follow-up in a few days if not much better. Departure - Departure Time of Disposition: 12:35 Disposition: Home, Self-Care 01 Condition: Good Clinical Impression: Insect bite Qualifiers: Encounter type: initial encounter Site of insect bite: unspecified site Qualified Code(s): W57.XXXA - Bitten or stung by nonvenomous insect and other nonvenomous arthropods, initial encounter - Discharge Information *PRESCRIPTION DRUG MONITORING PROGRAM REVIEWED*: No *COPY OF PRESCRIPTION DRUG MONITORING REPORT IN PATIENT AZEB: No Instructions: Insect Bite, Adult, [id number] Referrals: PCP,None [Primary Care Provider] - Forms: ED Department Discharge Additional Instructions: You were evaluated in the ER today for your bee sting on your right hand and right leg. At this time; it looks like local inflammation, but this will take a day or 2 to feel much better. Sometimes this can take up to 48 hours to start subsiding. Please keep an eye on the areas, if you should notice any red streaking, up the arm or leg, or redness that seems to be spreading far from the borders in which they are confined to today, this would be cause for concern to return to medical management for reevaluation. You may continue to use Benadryl, 25 mg every 4 hours as needed for ongoing swelling relief, however throughout the day I recommend that you use a medication like Zyrtec or Martha, as this has antihistamine properties, and you only need to take 1 tablet daily for ongoing anti-histamine management. The Benadryl can make you sleepy, and we caution use of this throughout the day. You may use 600 mg ibuprofen every 6 hours as needed for ongoing pain management. Do not exceed 3200 mg ibuprofen in a 24-hour time span. Please also try to use ice packs to the area on a intermittent basis to provide relief from the swelling. Please try to stay in a cool areas over the next day or 2 if possible, to further provide relief from the swelling. Do not hesitate to return to the ER at any time if symptoms change or worsen. Sepsis Event Note (ED) - Evaluation Sepsis Screening Result: No Definite Risk - Focused Exam Vital Signs: Vital Signs Temp Pulse Resp BP Pulse Ox 04/15/21 11:36 96.7 F L 81 16 127/67 98
== END 2021-04-15 12:48 | disposition home or self-care (01) ==
LOC: JD.ED 11:29
DX: T63.441A Toxic effect of venom of bees, accidental (unintentional), initial encounter (principal); Z86.16 Personal history of COVID-19; Z91.030 Bee allergy status; Z88.5 Allergy status to narcotic agent
CPT/HCPCS: 96372; 99282; J2930; 99283

== ENCOUNTER 2021-11-10 20:10 | Emergency (ER) | payer OTHER ==
[2021-11-10] MEDS ORDERED: Ibuprofen 600 MG Tab PO ONE (20:34)
[2021-11-10] MEDS ORDERED: Orphenadrine 100 MG Tab.ER PO STA (20:34)
== END 2021-11-10 20:53 | disposition home or self-care (01) ==
LOC: JD.ED 20:10
DX: S39.012A Strain of muscle, fascia and tendon of lower back, initial encounter (principal); Z91.030 Bee allergy status; Z88.5 Allergy status to narcotic agent; X50.0XXA Overexertion from strenuous movement or load, initial encounter; Y99.0 Civilian activity done for income or pay
CPT/HCPCS: 99283; A9270

== ENCOUNTER 2022-04-14 21:08 | Emergency (ER) | payer OTHER ==
[2022-04-14] MEDS ORDERED: Glucagon,Human Recombinant 1 MG Vial IVPUSH ONE (22:35)
[2022-04-14] MEDS ORDERED: LORazepam 2 MG/ML SDV IVPUSH ONE (22:44)
== END 2022-04-15 01:37 | disposition home or self-care (01) ==
LOC: JD.ED 21:08
DX: T18.128A Food in esophagus causing other injury, initial encounter (principal); Z86.16 Personal history of COVID-19; Z91.030 Bee allergy status; Z88.5 Allergy status to narcotic agent
CPT/HCPCS: 96374; 96375; 99283; J1610; J2060

== ENCOUNTER 2022-10-01 16:34 | Emergency (ER) | payer OTHER ==
[2022-10-01] MEDS ORDERED: Sodium Chloride 0.9% 1,000 ML IV ONE ×2 (17:17→19:23)
[2022-10-01] MEDS ORDERED: Sodium Chloride 0.9% 10 ML Syringe FLUSH PRN (17:17)
[2022-10-01] MEDS ORDERED: Ondansetron 4 MG/2 ML SDV IVPUSH ONE (17:17)
[2022-10-01] MEDS ORDERED: Promethazine 25 MG in Sodium Chloride 0.9% 50 ML IV ONE (18:03)
[2022-10-01] MEDS: Potassium Chloride 10 MEQ in Premix Bag 1 BAG IV SCH ×4 (19:18→22:47)
[2022-10-01] MEDS ORDERED: Magnesium Sulfate/Water 2 GM in Premix Bag 1 BAG IV ONE (20:30)
== END 2022-10-01 23:45 | disposition home or self-care (01) ==
LOC: JD.ED 16:34
DX: O21.9 Vomiting of pregnancy, unspecified (principal); O99.282 Endocrine, nutritional and metabolic diseases complicating pregnancy, second trimester; E87.6 Hypokalemia; E83.42 Hypomagnesemia; I10 Essential (primary) hypertension; Z86.16 Personal history of COVID-19; Z91.030 Bee allergy status; Z88.5 Allergy status to narcotic agent; Z3A.18 18 weeks gestation of pregnancy
CPT/HCPCS: 36415; 80053; 83735; 85025; 96361; 96365; 96366; 96367; 96375; 99284; J2405; J2550; J3475; J3480; J3490; J7030

== ENCOUNTER 2022-12-17 06:33 | Emergency (ER) | payer OTHER ==
[2022-12-17] MEDS ORDERED: Cetirizine 10 MG Tab PO ONE (07:03)
[2022-12-17] MEDS ORDERED: predniSONE 20 MG Tab PO STA (07:03)
[2022-12-17] MEDS ORDERED: Famotidine 20 MG Tab PO STA (07:09)
== END 2022-12-17 07:45 | disposition home or self-care (01) ==
LOC: JD.ED 06:33
DX: L50.9 Urticaria, unspecified (principal); Z91.030 Bee allergy status; Z88.5 Allergy status to narcotic agent; Z86.16 Personal history of COVID-19; Z79.82 Long term (current) use of aspirin; Z79.899 Other long term (current) drug therapy
CPT/HCPCS: 99284; A9270; J7512; 99282

== ENCOUNTER 2023-12-13 16:15 | Emergency (ER) | payer OTHER ==
[2023-12-13] MEDS: Lactated Ringers 1,000 ML IV ONE (17:04)
== END 2023-12-13 18:46 | disposition home or self-care (01) ==
LOC: JD.ED 16:15
DX: O21.9 Vomiting of pregnancy, unspecified (principal); O26.891 Other specified pregnancy related conditions, first trimester; Z91.030 Bee allergy status; Z88.8 Allergy status to other drugs, medicaments and biological substances; Z79.899 Other long term (current) drug therapy; Z86.16 Personal history of COVID-19; Z3A.09 9 weeks gestation of pregnancy
CPT/HCPCS: 96360; 99283; J7120

== ENCOUNTER 2024-04-25 20:58 | Emergency (ER) | payer OTHER ==
[2024-04-25] MEDS ORDERED: Lidocaine 1% 10 ML MDV INJECT ONE (21:37)
[2024-04-25] MEDS: cefTRIAXone 1 GM Vial IM ONE (21:50)
== END 2024-04-25 22:00 | disposition home or self-care (01) ==
LOC: JD.ED 20:58
DX: S80.862A Insect bite (nonvenomous), left lower leg, initial encounter (principal); L03.116 Cellulitis of left lower limb; Z79.899 Other long term (current) drug therapy; Z88.5 Allergy status to narcotic agent; Z91.030 Bee allergy status; W57.XXXA Bitten or stung by nonvenomous insect and other nonvenomous arthropods, initial encounter
CPT/HCPCS: 96372; 99283; J0696

== ENCOUNTER 2025-06-07 23:00 | Emergency (ER) | payer OTHER | END 2025-06-08 00:10 | disposition home or self-care (01) | LOC: JD.ED 23:00 | DX: B34.9 Viral infection, unspecified (principal); H69.92 Unspecified Eustachian tube disorder, left ear; Z79.899 Other long term (current) drug therapy; Z91.030 Bee allergy status; Z88.5 Allergy status to narcotic agent; Z88.8 Allergy status to other drugs, medicaments and biological substances; Z86.16 Personal history of COVID-19 | CPT/HCPCS: 99282 ==